=== PATIENT | male | born 1970 | race Caucasian/White ===

== ENCOUNTER 2022-07-01 10:29 | Emergency (ER) | payer OTHER, SELFPAY ==
--- NOTE | 2022-07-01 11:23 | ED.GENADULT ---
HPI - General Adult General Chief complaint: Wound/Laceration Stated complaint: Wound Source: patient Mode of arrival: ambulatory Limitations: no limitations History of Present Illness HPI narrative: Patient presents requesting packing removal from a right upper extremity wound. He indicates he was seen at [facility] 3 days ago where an I and D was performed. At that time he was given prescriptions for metformin, Ultram, Bactrim. He did not have money for the medications of did not fill it as of yet. He indicates he now has the appropriate funds to pay for the medication. No fever, chills, nausea, vomiting. He states he was not aware of the fact that he was diabetic until he was seen at [place]. Related Data Allergies Allergy/AdvReac Type Severity Reaction Status Date / Time No Known Allergies Allergy Verified 07/01/22 11:00 Review of Systems Review of Systems: CONSTITUTIONAL: Denies fever, chills, or sweats. EYES: Denies visual changes, redness, or discharge. ENT: Denies rhinorrhea, congestion, sore throat, or otalgia. CARDIOVASCULAR: Denies chest pain, palpitations, or edema. RESPIRATORY: Denies cough or dyspnea. GASTROINTESTINAL: Denies abdominal pain, nausea, vomiting, or diarrhea. GENITOURINARY: Denies dysuria or hematuria. SKIN: Reports healing wound to the right upper extremity MUSCULOSKELETAL: Reports pain in the right upper extremity at site of recent abscess. Denies back pain, joint pain, or myalgia. NEUROLOGIC: Denies headache, numbness, dizziness, or weakness. PSYCHIATRIC: Denies anxiety or depression. PMFSH Past Medical History Medical History No pertinent past medical history Surgical History Surgical History No pertinent past surgical history Family History Family History Mother Family history non-contributory Social History Social History Substance use: never Gender identity (if verbalized by the patient): Male Spiritual care concerns: No Exam Narrative: GENERAL: Well-appearing, well-nourished, and in no acute distress. HEAD: Normocephalic, atraumatic. EYES: PERRLA and EOMI. ENT: Nares clear, no rhinorrhea or epistaxis. Mucous membranes moist. Oropharynx without tonsillar hypertrophy exudate or other lesions. Bilateral TMs pearly woods nonbulging NECK: Supple. No adenopathy or masses. No carotid bruits or JVD CHEST: Clear to auscultation. No respiratory distress. No wheezes rales or rhonchi HEART: Regular rate and rhythm. No murmur heard. Normal peripheral pulses. ABDOMEN: Soft, nontender, nondistended, normal active bowel sounds. EXTREMITIES: Normal range of motion. No edema. SKIN: there is wound packing to the right upper arm which was removed. Incisional site has pink tissue present without any purulence, fluctuance, induration or erythema. NEURO: No focal deficits. Alert and oriented x3. PSYCH: Normal mood and affect. Course Course Emergency Course: This is a 51-year-old male who presented to have packing removed from right upper extremity incisional site following recent I+D. Wound bed pink and without any purulence. he was instructed to fill his Ultram, metformin, and bactrim. Will add cephalexin. Follow up with primary provider go to the ER for worsening symptoms. Patient in agreement with plan of care. Level of Care: Express Care Visit Discharge Plan Discharge Clinical Impression: Abscess packing removal Patient Disposition: Home, Self-Care Condition: Stable Instructions: Antibiotic Form, Abscess (ED) Additional Instructions: PLEASE FILL PRESCRIPTIONS FOR ULTRAM, METFORMIN AND BACTRIM THAT YOU WERE GIVEN AT [facility] AND TAKE DIRECTED. I AM STARTING [facility] WELL. Patient Language: Rubi
== END 2022-07-01 11:29 | disposition home or self-care (01) ==
PROVIDERS: Emergency Provider Nurse Practitioner
DX: Z48.01 Encounter for change or removal of surgical wound dressing (principal)
CPT/HCPCS: 99203; G0463